=== PATIENT | female | born 1975 | race Caucasian/White ===

== ENCOUNTER 2024-06-27 17:18 | Emergency (ER) | payer MEDICAID, OTHER ==
[~2024-06-27] VITALS: Ht 142.2 cm; Wt 59.0 kg
[2024-06-27] MEDS ORDERED: IBUP-1456 PO (19:00)
[2024-06-27] MEDS ORDERED: CYCL-837 PO (19:00)
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
[2024-06-27 19:01] VITALS: BP 120/86; PULSE 84; RESP 16; TEMP 99.3; O2SAT 96
[2024-06-27] MEDS: HYDROcodone-ACET 5/325MG TAB PO ONE (19:06)
[2024-06-27] MEDS: ONDANSETRON ODT 4 MG TAB PO ONE (19:07)
--- NOTE | 2024-06-27 19:20 | DVH ---
CLINICAL INDICATION: LEFT SHOULDER/LEFT HUMERUS PAIN TECHNIQUE: XY L SHOULDER 2+ VIEW XRAY Comparison: None FINDINGS/IMPRESSION: : There is no evidence of acute fracture or dislocation. Mild degenerative narrowing of the acromioclavicular joint. Visualized portions of the lungs are clear. Overlying soft tissues are intact.
--- NOTE | 2024-06-27 19:24 | DVH ---
CLINICAL INDICATION: LEFT HUMERUS PAIN TECHNIQUE: 2 radiographic views of the left humerus were obtained. Comparison: None FINDINGS/IMPRESSION: There is no evidence of acute fracture or dislocation. The visualized joint space is well maintained. The alignment is anatomical. There is no radiopaque foreign body.
== END 2024-06-27 19:50 | disposition home or self-care (01) ==
LOC: EDBD 17:18 → ER 17:18 → EDUNIT# 17:18 → ER 19:50
DX: S46.812A Strain of other muscles, fascia and tendons at shoulder and upper arm level, left arm, initial encounter (principal); S40.022A Contusion of left upper arm, initial encounter; M19.012 Primary osteoarthritis, left shoulder; V49.88XA Car occupant (driver) (passenger) injured in other specified transport accidents, initial encounter; Y93.I9 Activity, other involving external motion; Y92.488 Other paved roadways as the place of occurrence of the external cause; Y99.8 Other external cause status
CPT/HCPCS: 73030; 73060; 99284; Q0162